=== PATIENT | female | born 1950 | race Caucasian/White ===

== ENCOUNTER → 2016-08-30 | Outpatient (CLI) | payer OTHER ==
[~2016-08-30] MED LIST: ACETAMINOPHEN500 M4 PO; ADVAIR 250-501 EACH IH; ALBUTEROL17 GM INH; ALEVE PO; ASPIRIN81 M1 PO; ASPIRIN81 M2 PO; CALCIUM + D PO; CRESTOR10 MG PO; FLONASE16 GM; LIPITOR40 MG PO; MEGA RED PO; MULTIPLE VITAMI1 T11 PO; NAPROXEN PO; NASACORT AQ16.5 GM; OCUVITE TABLET1 TA1 PO; PATADAY2.5 ML OU; SINGULAIR PO; VITAMIN D32000 UNI1 PO; VITAMIN D350000 UNIT PO; [UNRECOGNIZED DRUG - OTHER] PO
--- NOTE | ~2016-08-30 | MY11 ---
[facility] A Service of [facility] RADIOLOGY TEXT RESULTS PATIENT: CARIDAD GAYTAN LOCATION: [facility] : [birth year] UNIT #: [id number] AGE: [address]: Jordyn Ling APRN SEX: F ORDER DR: [id number] [facility] [address] [place], [place] [address] [id number] O MR#: [id number] Acc #: [id number] NAME: CARIDAD GAYTAN. : 1950 SEX: F STUDY DATE/TIME: 08/30/2016 10:18 UNIT: [facility] ROOM: STUDY DESCRIPTION: MY Mammogram Screening Dig Stone Attending Physician: Jordyn Ling A.P.R.N. Referring Physician: Jordyn Ling A.P.R.N. Ordering Physician: Jordyn Ling A.P.R.N. Primary Care Physician: Jordyn Ling A.P.R.N. MEDICAL IMAGING REPORT This report is preliminary unless electronic signature is present EXAM Digital screening mammogram 08/30/2016 HISTORY 66-year-old woman previous augmentation. Positive family history, maternal grandmother. Annual screen. COMPARISON Mammograms date to 06/25/2006 with most recent 08/24/2015. FINDINGS Digital imaging of each breast was completed utilizing conventional projections and standard Jolanta views. Review includes FDA-approved CAD device. Bilateral sub glandular encapsulated silicone implants appear stable. Breast parenchyma is fatty replaced. There is no interval occurring mass. There are no suspicious microcalcifications and no architectural deformity. IMPRESSION Negative mammogram. Stable subglandular encapsulated silicone implants. Annual screening recommended. Patients over the age of 40 are entered into a reminder system with target due date for the next mammogram. A result letter will also be sent to the patient. BIRADS: 1 Negative Dictated by... Abdiaziz García M.D. [facility] A Service [facility] RADIOLOGY TEXT RESULTS PATIENT: CARIDAD GAYTAN LOCATION: [facility] : [birth year] UNIT #: [id number] AGE: [address]: Jordyn Ling APRN SEX: F ORDER DR: THIS IS AN ELECTRONICALLY VERIFIED REPORT Abdiaziz García M.D. at 08/30/2016 1:03 PM CHRISTIANE/juany TD: 08/30/2016 12:06 JOB #: [id number] MEDICAL IMAGING REPORT Page 1 of 1 COPY
== END | disposition home or self-care (01) ==
LOC: CWCC 09:40
DX: Z12.31 Encounter for screening mammogram for malignant neoplasm of breast (principal); Z80.3 Family history of malignant neoplasm of breast; Z98.82 Breast implant status
CPT/HCPCS: G0202

== ENCOUNTER → 2016-09-08 | Day surgery (SDC) | payer OTHER ==
--- NOTE | ~2016-09-08 | OR ---
Unit #: [id number] #: [id number] Patient: CARIDAD GAYTAN [id number] [address] [address] [id number] O MR#: [id number] NAME: CARIDAD GAYTAN. ROOM: Date of Procedure: 09/08/2016 Admission Date: 09/08/2016 Surgeon: Tejinder Washington M.D. : 1950 Attending Physician: Tejinder Washington M.D. Referring Physician: Tejinder Washington M.D. Primary Care Physician: Jordyn Ling A.P.R.N. OPERATIVE REPORT PREOPERATIVE DIAGNOSES 1. History of colonic polyps. 2. Palpable rectal lesion. 3. Surveillance colonoscopy. POSTOPERATIVE DIAGNOSES 1. History of colonic polyps. 2. Palpable rectal lesion. 3. Surveillance colonoscopy. PROCEDURES PERFORMED 1. Colonoscopy to cecum. 2. Polypectomy at 20 cm with electrocautery snare. Placement of hemoclip and submucosal tattoo. ANESTHESIA Monitored anesthesia care. FINDINGS The patient was found to have a small flat polyp approximately 8 mm in size. It was excised completely at 20 cm with electrocautery snare. There was slight oozing and hemoclip was placed with excellent hemostasis. The area was submucosally tattooed. The palpable rectal lesion was at or below the dentate line and was an old scarred tag from an internal hemorrhoid. SPECIMENS Sent to pathology. COMPLICATIONS None apparent. CONDITION The patient tolerated the procedure well. INDICATIONS FOR PROCEDURE The patient is a 66-year-old white female, who presents at this time for surveillance colonoscopy because of history of multiple colonic polyps and also because of a palpable rectal lesion just inside the anus in the posterior midline. DESCRIPTION OF PROCEDURE Unit #: [id number] #: [id number] Patient: CARIDAD GAYTAN After obtaining informed consent, the patient was brought to the endoscopy suite and after adequate monitored anesthesia care, had the colonoscope placed through the anus and slowly advanced to the level of the cecum without difficulty with the lumen always in view. Prior to inserting the colonoscope, digital examination was performed and then there was a small firm palpable area in the posterior midline just inside the anus. The cecum was normal as was the ileocecal valve. The ascending colon was normal as was the hepatic flexure, transverse colon, splenic flexure, and descending colon. The sigmoid colon had a rare shallow sigmoid diverticulum. At 20 cm, there was an 8 mm flat sessile polyp. It was excised completely with electrocautery snare. There were some slight oozing of the area and a hemoclip was placed with excellent hemostasis. It was watched for several minutes and was irrigated and there was no bleeding at all. The area was submucosally tattooed. The remaining portion of the rectosigmoid and rectum were all within normal limits. On retroflexing in the rectum to the anorectal junction, there was an old scarred internal hemorrhoid. This was the palpable abnormality. It was at or below the dentate line. As a result, it was not excised with electrocautery snare. The scope was removed without difficulty. The patient tolerated the procedure well and went from the endoscopy suite to recovery area in stable condition. RECOMMENDATIONS High-fiber diet, lots of liquids, tucks or wipes p.r.n. Follow up repeat colonoscopy in 3 years and call Sunday for pathology. Dictated by... Tejinder Washington M.D. LUBNA/bozena TD: 09/08/2016 22:28 JOB #: [id number] Ugo Huitron D.O. [facility] OPERATIVE REPORT Page 1 of 1 X Tejinder Washington MD X PROCEDURE OPERATIVE NOTE
== END | disposition home or self-care (01) ==
LOC: COPS 05:53
DX: D12.6 Benign neoplasm of colon, unspecified (principal); K64.8 Other hemorrhoids; K57.30 Diverticulosis of large intestine without perforation or abscess without bleeding; J45.909 Unspecified asthma, uncomplicated; E78.5 Hyperlipidemia, unspecified; M19.90 Unspecified osteoarthritis, unspecified site; Z88.8 Allergy status to other drugs, medicaments and biological substances; Z91.013 Allergy to seafood; Z79.51 Long term (current) use of inhaled steroids; Z79.82 Long term (current) use of aspirin; Z79.899 Other long term (current) drug therapy; Z90.710 Acquired absence of both cervix and uterus
CPT/HCPCS: 88305; J2250